=== PATIENT | male | born 1970 | race Caucasian/White ===

== ENCOUNTER 2021-02-01 05:50 | Day surgery (SDC) | payer BC ==
[~2021-02-01] VITALS: Ht 172.7 cm; Wt 77.2 kg
[2021-02-01] MEDS ORDERED: LACTATED RINGERS 1,000 ML IV SCH (06:30)
[2021-02-01] MEDS ORDERED: CHLORHEXIDINE 15 ML UDC ONE (06:47)
[2021-02-01 06:59] VITALS: BP 113/79
[2021-02-01] MEDS ORDERED: CHLORHEXIDINE 15 ML UDC PO ONE (07:00)
[2021-02-01] MEDS ORDERED: BUPR300T94 PO (07:09)
[2021-02-01] MEDS ORDERED: AMPH20CA7 PO (07:09)
[2021-02-01] MEDS ORDERED: OPIUM/BELLADONNA SUPP.RECT 16.2-30 MG ONE ×3 (07:09→07:14)
[2021-02-01] MEDS ORDERED: TAMS-11 PO (07:09)
[2021-02-01 07:14] LABS: MICROSCOPIC NOT IND
[2021-02-01] MEDS ORDERED: FENTANYL PF 100 MCG/2ML ONE (07:29)
[2021-02-01] MEDS ORDERED: MIDAZOLAM 1 MG/ML, 2ML ONE (07:29)
[2021-02-01] MEDS ORDERED: LIDOCAINE 1%, 20ML ONE (07:33)
[2021-02-01] MEDS ORDERED: KETOROLAC 30 MG/1 ML ONE (07:48)
[2021-02-01] MEDS ORDERED: ONDANSETRON 2MG/ML, 2ML ONE (07:49)
[2021-02-01] MEDS ORDERED: PROPOFOL 10 MG/ML, 20ML ONE (07:49)
[2021-02-01] MEDS ORDERED: DEXAMETHASONE 4 MG/ML, 1ML ONE (07:49)
[2021-02-01] MEDS ORDERED: CEFAZOLIN 1,000 MG ONE (07:49)
[2021-02-01] MEDS ORDERED: FENTANYL PF 100 MCG/2ML IV PRN (08:00)
[2021-02-01] MEDS ORDERED: METOPROLOL 1 MG/ML, 5ML IV PRN (08:00)
[2021-02-01] MEDS ORDERED: ONDANSETRON 2MG/ML, 2ML IVPush PRN (08:00)
[2021-02-01] MEDS ORDERED: MEPERIDINE/PF 25MG/0.5ML IVPush PRN (08:00)
[2021-02-01] MEDS ORDERED: ACETAMINOPHEN 325 MG TABLET PO PRN (08:00)
[2021-02-01] MEDS ORDERED: OXYcodone 5 MG/5 ML ORAL.SOL UDC PO PRN (08:00)
[2021-02-01] MEDS ORDERED: METHOCARBAMOL 1,000 MG in DEXTROSE 5% 100 ML IV PRN (08:00)
[2021-02-01] MEDS ORDERED: PROMETHAZINE 25 MG SUPP PR PRN (08:00)
[2021-02-01] MEDS ORDERED: HYDROmorphone 1 MG/ML, 1ML INJ IVPush PRN (08:00)
[2021-02-01] MEDS ORDERED: LORazepam 2 MG/ML, 1ML IVPush PRN (08:00)
[2021-02-01] MEDS ORDERED: LABETALOL 5MG/ML, 20ML IV PRN (08:00)
[2021-02-01] MEDS ORDERED: PROMETHAZINE 25 MG/ML, 1ML IVPush PRN (08:00)
[2021-02-01] MEDS ORDERED: hydrALAzine 20 MG/ML, 1ML IV PRN (08:00)
== END 2021-02-01 10:05 | disposition home or self-care (01) ==
LOC: OUT 05:50
PROVIDERS: ATTEND Student in an Organized Health Care Education/Training Program
DX: N32.0 Bladder-neck obstruction (principal); R33.8 Other retention of urine; Z79.899 Other long term (current) drug therapy; Z72.89 Other problems related to lifestyle; Z20.822 Contact with and (suspected) exposure to COVID-19
CPT/HCPCS: 52450; 81003; 87635; J0690; J1100; J1885; J2250; J2405; J2704; J3010; J7120